=== PATIENT | female | born 2000 | race Caucasian/White ===

== ENCOUNTER 2022-02-18 17:33 | Emergency (ER) | payer BC, OTHER ==
[2022-02-18 19:49] LABS: HEMOGLOBIN 13.6 gm/dl (12.3-15.3); RED BLOOD COUNT 4.31 M/UL (4.00-5.10); WHITE BLOOD COUNT 9.9 K/UL (4.5-11.0)
[2022-02-18 20:19] LABS: BUN/CREATININE RATIO 12 (0-10)
[2022-02-18] MEDS ORDERED: MACROBID 100 M100 M1 PO (21:10)
== END 2022-02-18 21:40 | disposition home or self-care (01) ==
LOC: ER1 17:33
PROVIDERS: Physician Assistant
DX: O23.42 Unspecified infection of urinary tract in pregnancy, second trimester (principal); N39.0 Urinary tract infection, site not specified; O99.891 Other specified diseases and conditions complicating pregnancy; R31.9 Hematuria, unspecified; O99.412 Diseases of the circulatory system complicating pregnancy, second trimester; I45.10 Unspecified right bundle-branch block; Z20.822 Contact with and (suspected) exposure to COVID-19; Z3A.15 15 weeks gestation of pregnancy
CPT/HCPCS: 0240U; 80053; 81001; 82550; 82553; 83735; 84439; 84443; 84484; 85025; 87086; 93005; 99284

== ENCOUNTER → 2022-04-27 | Outpatient (CLI) | payer BC, OTHER ==
[~2022-04-27] MED LIST: MACROBID 100 M100 M1 PO
== END ==
LOC: HEART 5 14:49
DX: R55 Syncope and collapse (principal)
CPT/HCPCS: 93306

== ENCOUNTER 2022-05-20 18:37 | Emergency (ER) | payer OTHER ==
[2022-05-20 21:06] LABS: HEMOGLOBIN 12.9 gm/dl (12.3-15.3); RED BLOOD COUNT 3.86 M/UL (4.00-5.10); WHITE BLOOD COUNT 14.6 K/UL (4.5-11.0)
[2022-05-20 21:14] LABS: BUN/CREATININE RATIO 12 (0-10)
== END 2022-05-20 23:34 | disposition home or self-care (01) ==
LOC: ER1 18:37
PROVIDERS: Physician Assistant
DX: O99.891 Other specified diseases and conditions complicating pregnancy (principal); R10.9 Unspecified abdominal pain; R31.9 Hematuria, unspecified; Z3A.28 28 weeks gestation of pregnancy
CPT/HCPCS: 80053; 81001; 85025; 87086; 99284